=== PATIENT | female | born 1950 | race Caucasian/White ===

== ENCOUNTER → 2016-08-31 | Outpatient (CLI) | payer OTHER ==
[~2016-08-31] MED LIST: ATV5 PO; B-COTAB18 PO; FAMO40TA6 PO; FLUO20CA35 PO; MULT-190 PO; PANT40TA PO; PROP10TA7 PO; VALA500T60 PO
--- NOTE | 2016-08-31 15:48 | MAMMOGRAPHY REPORT ---
BILATERAL DIGITAL SCREENING MAMMOGRAM WITH CAD: 08/31/2016 CLINICAL HISTORY: Routine screening. Patient has no complaints. TECHNIQUE: Current study was also evaluated with a Computer Aided Detection (CAD) system. Bilatera l CC and MLO views were obtained. COMPARISON: Comparison is made to exams dated: 08/29/2015 mammogram, 08/25/2013 mammogram, 08/27/2014 m ammogram, 08/20/2012 mammogram, 01/30/2011 mammogram - [facility], and 01/13/2009. BREAST COMPOSITION: The tissue of both breasts is extremely dense, which lowers the sensitivity of mammography. FINDINGS: No suspicious masses, calcifications, or areas of architectural distortion are noted in e ither breast. There has been no significant interval change compared to prior exams. IMPRESSION: ACR BI-RADS CATEGORY 1: NEGATIVE There is no mammographic evidence of malignancy. A 1 year screening mammogram is recommended. The p atient will receive written notification of the results. Approximately 10% of breast cancers are not detected with mammography. A negative mammographic repor t should not delay biopsy if a clinically suggestive mass is present. Lucero Jeter M.D. /:08/31/2016 14:14:34 Home Advisor: Agueda VICTORIA(Margarita)(M), [facility] letter sent: Normal 1/2 BI-RADS Code: ACR BI-RADS Category 1: Negative
== END | disposition home or self-care (01) ==
LOC: C.MAMM 13:34
PROVIDERS: ATTEND Family Medicine
DX: Z12.31 Encounter for screening mammogram for malignant neoplasm of breast (principal)

== ENCOUNTER 2016-09-26 08:38 | Emergency (ER) | payer OTHER ==
[~2016-09-26] VITALS: Ht 160 cm; Wt 48.0 kg
[~2016-09-26 08:38] MED LIST changes: -B-COTAB18 PO; -FAMO40TA6 PO; -FLUO20CA35 PO; -MULT-190 PO; -PROP10TA7 PO; -VALA500T60 PO
[2016-09-26 08:46] VITALS: TEMP 36.6; Ht 160 cm; Wt 48.0 kg
[2016-09-26] MEDS ORDERED: PROP10TA7 PO (08:53)
[2016-09-26] MEDS ORDERED: FLUO20CA35 PO (08:53)
[2016-09-26] MEDS ORDERED: B-COTAB18 PO (08:54)
[2016-09-26] MEDS ORDERED: MULT-190 PO (08:54)
[2016-09-26] MEDS ORDERED: FAMO40TA6 PO (08:54)
[2016-09-26] MEDS ORDERED: VALA500T60 PO (08:54)
[2016-09-26] MEDS ORDERED: LORAZEPAM 2 MG/ML 1 ML VIAL IV STA ×2 (09:44→17:15)
[2016-09-26] MEDS ORDERED: MULTI-VITAMIN INFUSION INJ 10 ML, FoLIC ACID INJ 1 MG, THIAMINE HCL INJ 100 MG in SODIU... IV STA (09:44)
[2016-09-26 10:01] LABS: BASO % 0.7 %; BASO ABS # 0.06 K/uL (0-0.2); COMPLETE YES; EOS % 2.5 %; HEMATOCRIT 39.6 % (37-47); IG% 0.1 %; LYMPH ABS # 2.74 K/uL (1.2-3.4); MEAN CELL VOLUME 99.2 fL (80-100); MEAN CORPUSCULAR HEMOGLOBIN 35.1 pg (25-34); MEAN CORPUSCULAR HGB CONC 35.4 g/dl (32-36); MEAN PLATELET VOLUME 10.1 fL (7.4-10.4); NEUT % 53.7 %; PLATELET COUNT 286 K/uL (130-400); RED BLOOD COUNT 3.99 M/uL (4.2-5.4)
[2016-09-26 10:10] LABS: ALT/SGPT 27 U/L (12-78); AST/SGOT 18 U/L (15-37); BLOOD UREA NITROGEN 17 mg/dl (7-18); BUN/CREATININE RATIO 24.4 (10-20); CALCIUM 9.1 mg/dl (8.5-10.1); CARBON DIOXIDE 26 mmol/L (21-32); CHLORIDE 106 mmol/L (98-107); CREATININE 0.68 mg/dl (0.60-1.20); GLUCOSE 110 mg/dl (70-99); INR 0.9 (0.9-1.1); POTASSIUM 3.9 mmol/L (3.5-5.1); PROTHROMBIN TIME (PATIENT) 9.6 SECONDS (9.0-12.0); SODIUM 142 mmol/L (136-145)
[2016-09-26 10:18] LABS: ALKALINE PHOSPHATASE 83 U/L (45-117); CKMB/CK RATIO 1.7 (0-3.0)
--- NOTE | 2016-09-26 11:00 | DIAGNOSTIC IMAGING REPORT ---
CHEST ONE VIEW PORTABLE CLINICAL HISTORY: EVALUATE ALTERED MENTAL STATUS/WEAKNESS dyspnea COMPARISON STUDY: 02/22/2011 FINDINGS: The bones soft tissues and hemidiaphragms are normal. The cardiomediastinal silhouette is normal. The lungs are clear. The pulmonary vasculature is normal. IMPRESSION: Negative chest. Electronically signed by: Nico Cortes M.D. 09/26/2016 10:59 AM Dictated Date/Time: 09/26/2016 10:56 AM
--- NOTE | 2016-09-26 16:37 | EMERGENCY ROOM VISIT NOTE ---
History Report prepared by Jl: Quinn López Under the Supervision of: Dr. Ant Nash D.O. First contact with patient: 09:38 Chief Complaint: ILLNESS Stated Complaint: CHEST PAIN History of Present Illness The patient is a 66 year old female who presents to the Emergency Room with complaints of recurrent upper extremity tremors for the past two weeks. The tremors are relieved by alcohol consumption. The patient also complains of intermittent chest and back pain, as well as increased confusion and generalized weakness. The patient has a history of alcoholism. She was diagnosed with IBS approximately one year ago, and has since been experiencing frequent diarrhea that is causing her to lose weight. The patient notes increased drinking when she was diagnosed with IBS approximately one year ago. The patient drinks about 1.5 750 ml bottles of wine per day. She was in rehab for alcohol 24 years ago. The patient has a history of anxiety, for which she is prescribed Propranolol. Source of History: patient Onset: two weeks ago Position: arm (bilateral) Quality: other (tremors) Timing: other (recurrent) Modifying Factors (Relieving): other (alcohol) Associated Symptoms: + back pain, + chest pain, + weakness Review of Systems See HPI for pertinent positives & negatives. A total of 10 systems reviewed and were otherwise negative. Past Medical & Surgical Medical Problems: (1) IBS (irritable bowel syndrome) Family History Patient reports no known family medical history. Social History Smoking Status: Never Smoker Alcohol Use: heavy Marital Status: Occupation Status: unemployed Current/Historical Medications Scheduled B-Complex Vitamins (Vitamin B Complex), 1 TAB PO DAILY Famotidine (Pepcid), 40 MG PO QPM Fluoxetine (Prozac), 3 MG PO QAM Ocuvite Preservision (Ocuvite Preservision), 1 TAB PO DAILY Pantoprazole (Protonix), 40 MG PO DAILY Propranolol (Inderal), 10-20 MG PO QAM Scheduled PRN Valacyclovir (Valtrex), 1,000 MG PO BID PRN for COLD SORES Allergies Coded Allergies: Celecoxib (Unverified Allergy, Unknown, SWELLING, HIVES, 06/30/15) Sulfamethoxazole w/Trimethoprim (Unverified Allergy, Unknown, UNKNOWN, 09/26) Bupropion (Unverified Adverse Reaction, Severe, RASH EVERYWHERE, 2/1/17) Physical Exam Vital Signs Date Time Temp Pulse Resp B/P Pulse Ox O2 Delivery O2 Flow Rate FiO2 09/26/16 17:07 77 17 159/89 97 Room Air 09/26/16 15:10 89 17 141/82 97 Room Air 09/26/16 14:26 83 16 131/94 09/26/16 11:30 81 16 152/88 09/26/16 10:38 70 16 135/89 09/26/16 09:20 75 09/26/16 08:46 36.6 78 16 150/84 97 Room Air Physical Exam CONSTITUTIONAL/VITAL SIGNS: Reviewed / noted above. GENERAL: Non-toxic in appearance. INTEGUMENTARY: Warm, dry, and [place]. HEAD: Normocephalic. EYES: without scleral icterus or trauma. ENT/OROPHARYNX: clear and moist. LYMPHADENOPATHY/NECK: Is supple without lymphadenopathy or meningismus. RESPIRATORY: Lungs clear and equal. CARDIOVASCULAR: Regular rate and rhythm. GI/ABDOMEN: Soft and nontender. No organomegaly or pulsatile mass. No rebound or guarding. Normal bowel sounds. EXTREMITIES: Warm and well perfused. Resting tremor of the upper extremities. BACK: No CVA tenderness. NEUROLOGICAL: Intact without focal deficits. PSYCHIATRIC: normal affect. MUSCULOSKELETAL: Normally developed with good muscle tone. Medical Decision & Procedures ER Provider Diagnostic Interpretation: X ray results and stated below per my interpretation and radiology interpretation. CHEST ONE VIEW PORTABLE CLINICAL HISTORY: EVALUATE ALTERED MENTAL STATUS/WEAKNESS dyspnea COMPARISON STUDY: 02/22/2011 FINDINGS: The bones soft tissues and hemidiaphragms are normal. The cardiomediastinal silhouette is normal. The lungs are clear. The pulmonary vasculature is normal. IMPRESSION: Negative chest. Electronically signed by: Nico Cortes M.D. 09/26/2016 10:59 AM Dictated Date/Time: 09/26/2016 10:56 AM Laboratory Results 09/26/16 08:35 Red Blood Count 3.99, Mean Corpuscular Volume 99.2, Mean Corpuscular Hemoglobin 35.1, Mean Corpuscular Hemoglobin Concent 35.4, Mean Platelet Volume 10.1, Neutrophils (%) (Auto) 53.7, Lymphocytes (%) (Auto) 33.0, Monocytes (%) (Auto) 10.0, Eosinophils (%) (Auto) 2.5, Basophils (%) (Auto) 0.7, Neutrophils # (Auto ) 4.45, Lymphocytes # (Auto) 2.74, Monocytes # (Auto) 0.83, Eosinophils # (Auto ) 0.21, Basophils # (Auto) 0.06 09/26/16 08:35 Test 09/26/16 08:35 09/26/16 10:14 White Blood Count 8.30 K/uL (4.8-10.8) Red Blood Count 3.99 M/uL (4.2-5.4) Hemoglobin 14.0 g/dL (12.0-16.0) Hematocrit 39.6 % (37-47) Mean Corpuscular Volume 99.2 fL (80-100) Mean Corpuscular Hemoglobin 35.1 pg (25-34) Mean Corpuscular Hemoglobin Concent 35.4 g/dl (32-36) Platelet Count 286 K/uL (130-400) Mean Platelet Volume 10.1 fL (7.4-10.4) Neutrophils (%) (Auto) 53.7 % Lymphocytes (%) (Auto) 33.0 % Monocytes (%) (Auto) 10.0 % Eosinophils (%) (Auto) 2.5 % Basophils (%) (Auto) 0.7 % Neutrophils # (Auto) 4.45 K/uL (1.4-6.5) Lymphocytes # (Auto) 2.74 K/uL (1.2-3.4) Monocytes # (Auto) 0.83 K/uL (0.11-0.59) Eosinophils # (Auto) 0.21 K/uL (0-0.5) Basophils # (Auto) 0.06 K/uL (0-0.2) RDW Standard Deviation 49.6 fL (36.4-46.3) RDW Coefficient of Variation 13.7 % (11.5-14.5) Immature Granulocyte % (Auto) 0.1 % Immature Granulocyte # (Auto) 0.01 K/uL (0.00-0.02) Prothrombin Time 9.6 SECONDS (9.0-12.0) Prothromb Time International Ratio 0.9 (0.9-1.1) Activated Partial Thromboplast Time 25.3 SECONDS (21.0-31.0) Partial Thromboplastin Ratio 1.0 Anion Gap 10.0 mmol/L (3-11) Est Creatinine Clear Calc Drug Dose 60.8 ml/min Estimated GFR () 104.9 Estimated GFR (Non- 90.5 BUN/Creatinine Ratio 24.4 (10-20) Calcium Level 9.1 mg/dl (8.5-10.1) Magnesium Level 2.0 mg/dl (1.8-2.4) Total Bilirubin 1.0 mg/dl (0.2-1) Direct Bilirubin 0.2 mg/dl (0-0.2) Aspartate Amino Transf (AST/SGOT) 18 U/L (15-37) Alanine Aminotransferase (ALT/SGPT) 27 U/L (12-78) Alkaline Phosphatase 83 U/L (45-117) Total Creatine Kinase 58 U/L (26-192) Creatine Kinase MB 1.0 ng/ml (0.5-3.6) Creatine Kinase MB Ratio 1.7 (0-3.0) Troponin I < 0.015 ng/ml (0-0.045) Total Protein 7.3 gm/dl (6.4-8.2) Albumin 4.3 gm/dl (3.4-5.0) Lipase 141 U/L (73-393) Thyroid Stimulating Hormone (TSH) 1.770 uIu/ml (0.300-4.500) Ethyl Alcohol mg/dL < 3.0 mg/dl (0-3) Laboratory results as stated above per my review. Medications Administered Medications (Trade) Dose Ordered Sig/[place]arrison Route Start Time Stop Time Status Last Admin Dose Admin Multivitamins/ Folic Acid/ Thiamine HCl/ Sodium Chloride (Mvi Infusion Inj/Folvite Inj/ Vitamin B-1 Inj/ Nss 1000ml) 1,011.2 ml @ 999 mls/ hr Q1H1M STAT IV 09/26/16 09:44 09/26/16 10:44 DC 09/26/16 10:32 999 MLS/HR Lorazepam (Ativan Inj) 1 mg NOW STAT IV 09/26/16 09:44 09/26/16 09:48 DC 09/26/16 10:11 1 MG Lorazepam (Ativan Inj) 1 mg NOW STAT IV 09/26/16 17:15 09/26/16 17:16 DC 09/26/16 17:52 1 MG ECG Indication: chest pain Rate (beats per minute): 75 Rhythm: normal sinus Findings: no acute ischemic change, no ectopy ED Course 0940: Previous medical records were reviewed. The patient was evaluated in room B11b. A complete history and physical examination was performed. 0944: Ativan 1 mg IV, Multivitamins 10 ml / Folic Acid 1 mg / Thiamine HCl 100 mg / NSS 1011.2 ml @ 999 mls/hr. 1128: Checked on the patient. 1715: Ativan 1 mg IV. 1715: Case management arranged an appointment for the patient with [facility] tomorrow. 1800: Reassessed the patient. Discussed the treatment plan with the patient. She verbalized understanding and agreement. The patient is ready for discharge. Medical Decision Differential includes acute coronary syndrome, myocardial infarction, CVA, TIA, anemia, infection, pneumonia, UTI, pyelonephritis, poor nutrition, dehydration, electrolyte disturbance,hypoglycemia. This is a 66-year-old female who presents to the ED with a chief complaint of shakiness all day long as well as some chest and back pain. The patient states that she has had increased alcohol intake over the past year. She makes to being an alcoholic. She states that she has had some weight loss over the past year and she reports diarrhea from IBS. She lives alone. She states that she has a hard time being because she lives alone and continues to drink alcohol though she would like to quit. She states that she drinks 1-1/2 bottles of wine a day each one around 750 mL. The patient denies any other symptoms. No shortness of breath or fevers. The patient's vital signs are normal. Her physical exam revealed some resting tremors of her upper extremities. She was in no distress. Chest x-ray is negative for acute disease. CBC complete metabolic panel were unremarkable. Troponin is negative. TSH is normal. Alcohol was negative. The patient was given a banana bag and Ativan 1 mg IV. Psychiatric case packer reevaluated the patient and has arranged for the patient to be accepted at a rehabilitation facility. The patient will follow up with outpatient drug and alcohol rehabilitation tomorrow. She is felt to be stable for discharge. She was given Ativan here for some withdrawal symptoms. Impression Primary Impression: Alcoholic Additional Impression: Tremors of nervous system Scribe Attestation The scribe's documentation has been prepared under my direction and personally reviewed by me in its entirety. I confirm that the note above accurately reflects all work, treatment, procedures, and medical decision making performed by me. Departure Information Dispostion Home / Self-Care Referrals Renetta Patterson M.D. (PCP) Forms HOME CARE DOCUMENTATION FORM, IMPORTANT VISIT INFORMATION, WORK / SCHOOL INSTRUCTIONS Patient Instructions My [facility] Additional Instructions Follow-up with outpatient drug and alcohol rehabilitation. Continue drinking alcohol until set up for an alcohol rehabilitation program. No driving while drinking alcohol. Problem Qualifiers
[2016-09-26 18:35] VITALS: BP 151/89; PULSE 88; O2SAT 97
== END 2016-09-26 18:35 | disposition home or self-care (01) ==
LOC: EDBD 08:38 → C.EDB 09:21
DX: R25.1 Tremor, unspecified (principal); F10.20 Alcohol dependence, uncomplicated; K58.9 Irritable bowel syndrome, unspecified; F41.9 Anxiety disorder, unspecified; Z79.899 Other long term (current) drug therapy

== ENCOUNTER → 2016-11-27 | Outpatient (CLI) | payer OTHER ==
[~2016-11-27] MED LIST changes: -ATV5 PO; +B-COTAB18 PO; +FAMO40TA6 PO; +FLUO20CA35 PO; +MULT-190 PO; +PROP10TA7 PO; +VALA500T60 PO
== END | disposition home or self-care (01) ==
LOC: C.MAMM 12:33
PROVIDERS: ATTEND Family Medicine
DX: M85.88 Other specified disorders of bone density and structure, other site (principal); M81.0 Age-related osteoporosis without current pathological fracture

== ENCOUNTER → 2017-08-12 | Outpatient (CLI) | payer OTHER ==
--- NOTE | 2017-08-12 10:58 | DIAGNOSTIC IMAGING REPORT ---
CT CT HIGH RISK DIAGNOSTIC CHEST WITH COMPUTER-AIDED DETECTION (CAD) CLINICAL HISTORY: F/U TO ONE YEAR LOW DOSE LUNG SCREENING COMPARISON STUDY: No previous studies for comparison. CT DOSE: 204.63 mGy.cm TECHNIQUE: Axial images of the chest were obtained without IV contrast. Images were reviewed in the axial, sagittal, and coronal planes. IV contrast was not administered for this examination. A dose lowering technique was utilized adhering to the principles of ALARA. FINDINGS: Mild emphysema. No pleural effusions. No pneumothorax. There again noted a few scattered small nodular densities seen throughout the lungs which are low suspicion. These are similar compared to the prior study. Dominant nodules are detailed below. No new pulmonary nodules identified. The central airways are patent. There is a 1.1 cm right thyroid nodule. No mediastinal or hilar lymphadenopathy. The heart is normal in size. The visualized liver, spleen, and adrenal glands are unremarkable. No suspicious lytic or blastic osseous lesions area Nodule 1 Category: 2 Nodule 1 Status: Shrinking Nodule 1 Description: Solid Nodule 1 Lesion ID: 1 Nodule 1 Slice Number: [id number] Nodule 1 Volume (mm3): 14 Nodule 1 Major [place] mm: 4.0 Nodule 1 Minor [place] mm: 1.9 Nodule 2 Category: 2 Nodule 2 Status: Stable. Nodule 2 Description: Solid Nodule 2 Lesion ID: 3 Nodule 2 Slice Number: [id number] Nodule 2 Volume (mm3): 8 Nodule 2 Major [place] mm: 2.7 Nodule 2 Minor [place] mm: 2.3 IMPRESSION: 1. No significant change in the scattered subcentimeter low suspicion nodular densities as described above. 2. A 1.1 cm right thyroid nodule. CAD FINDINGS: Overall Lung RADS Category: 2 Lung RADS Management Recommendation: 2 - Resume annual lung cancer screening. Lung RADS Follow Up Date: Lung RADS Nodule ID: 1 Electronically signed by: Christian Portillo M.D. 08/12/2017 10:57 AM Dictated Date/Time: 08/12/2017 10:46 AM
== END | disposition home or self-care (01) ==
LOC: C.CTS 09:46
PROVIDERS: ATTEND Family Medicine
DX: Z00.00 Encounter for general adult medical examination without abnormal findings (principal); F17.200 Nicotine dependence, unspecified, uncomplicated; R91.1 Solitary pulmonary nodule; E04.1 Nontoxic single thyroid nodule